=== PATIENT | male | born 1980 | race Caucasian/White ===

== ENCOUNTER 2016-03-05 11:04 | Emergency (ER) | payer BC ==
[~2016-03-05] VITALS: Ht 165.1 cm; Wt 68.7 kg
[~2016-03-05 11:04] MED LIST: FLOMAX0.4 MG PO; NAPROXEN500 MG PO; PERCOCET 5/31 TABLET PO
[2016-03-05 12:42] LABS: HEMATOCRIT 40.2 % (38.0-50.0); MCH 22.5 PG (29.0-34.0); MCHC 34.3 G/DL (30.0-36.0); MCV 65.5 FL (86-99); MEAN PLAT.VOLUME 9.9 uM^3 (9.0-12.4); PLATELET COUNT 355 K/uL (156-360); RBC DIS.WIDTH-CV 15.6 % (11.8-14.6); RBC DIS.WIDTH-SD 36.2 % (39-53); RED BLOOD COUNT 6.14 M/uL (4.00-5.50); WHITE BLOOD COUNT 9.4 K/uL (4.1-10.2)
[2016-03-05 12:50] LABS: CHLORIDE 106 mEq/L (99-109); SODIUM 141 mEq/L (136-147)
[2016-03-05 12:52] LABS: GLUCOSE 85 mg/dL (70-99)
[2016-03-05 12:54] LABS: ANION GAP 10 MEQ/L (2-14)
[2016-03-05 12:56] LABS: GFR ESTIMATE (CALCULATED) > 59 mL/min/
[2016-03-05 12:57] LABS: UREA NITROGEN (BUN) 7 mg/dL (9-23)
[2016-03-05 13:03] LABS: TROP-I INTERPRETATION NEGATIVE; TROPONIN-I < 0.01 ng/mL (0.0-0.30)
[2016-03-05 13:35] LABS: ADD MIUA? NO; BILIRUBIN NEGATIVE; BLOOD NEGATIVE; COLOR YELLOW ((YELLOW)); GLUCOSE (STRIP) NEGATIVE; KETONES NEGATIVE; LEUKOCYTES NEGATIVE; NITRITE NEGATIVE; PROTEIN (STRIP) NEGATIVE; SPECIFIC GRAVITY 1.014 (1.000-1.030); UROBILINOGEN 0.2 MG/DL (0.2-1.0)
[2016-03-05 13:55] LABS: TROP-I INTERPRETATION NEGATIVE; TROPONIN-I < 0.01 ng/mL (0.0-0.30)
[2016-03-05 14:30] VITALS: BP 125/79
== END 2016-03-05 14:33 | disposition home or self-care (01) ==
LOC: EME 11:04
PROVIDERS: Nurse Practitioner Family
DX: R07.9 Chest pain, unspecified (principal); F17.200 Nicotine dependence, unspecified, uncomplicated
CPT/HCPCS: 71020; 80048; 81003; 84484; 85027; 93005; 99281; 99284